=== PATIENT | female | born 1940 | race Caucasian/White ===

== ENCOUNTER 2017-01-21 07:39 | Day surgery (SDC) | payer MEDICARE ==
[2017-01-21] VITALS (11 sets, daily range): BP systolic 136–180; BP diastolic 81–107; PULSE 77–98; RESP 18–20; TEMP 98–98.6; O2SAT 93–97
[~2017-01-21] VITALS: Ht 162.6 cm; Wt 76.7 kg
[2017-01-21] MEDS ORDERED: POVIDONE IODINE 5% (ANTISEPSIS KIT) 4 APPLICATIONS EACH NARE PRN (08:15)
[2017-01-21] MEDS ORDERED: INSULIN HUMAN REGULAR 1,000 UNITS/10 ML VIAL SQ PRN (08:15)
[2017-01-21] MEDS ORDERED: LACTATED RINGER'S 1000 ML IV PRN (08:15)
[2017-01-21] MEDS ORDERED: CHLORHEXIDINE GLUCONATE 2 % 1 PACK (2 CLOTHS) TOPICAL PRN (08:15)
[2017-01-21] MEDS ORDERED: METOPROLOL TARTRATE 25 MG TAB PO PRN (08:15)
[2017-01-21] MEDS ORDERED: LORazepam 1 MG TAB SL SCH (08:15)
[2017-01-21] MEDS ORDERED: SODIUM CHLORID 0.9% 500 ML IV PRN (08:15)
[2017-01-21] MEDS ORDERED: SODIUM CHLORID 0.9% 500 ML INJ 500 ML IV SCH (08:15)
[2017-01-21] MEDS ORDERED: CALTTAB6 (08:18)
[2017-01-21] MEDS ORDERED: LEVO100T5 PO (08:18)
[2017-01-21] MEDS ORDERED: MULTCAP13 (08:18)
[2017-01-21] MEDS ORDERED: ZYRT10CA PO (08:18)
[2017-01-21] MEDS ORDERED: ASPI81CH CHEW (08:18)
[2017-01-21] MEDS ORDERED: CARD120T4 PO (08:18)
[2017-01-21] MEDS ORDERED: ROSU1TAB8 PO (08:18)
[2017-01-21] MEDS ORDERED: FEXO15TA PO (08:18)
[2017-01-21 08:27] LABS: AUTOMATED NEUTROPHIL # 2.1 TH/MM3 (1.8-7.7); BASOPHIL % 1.1 % (0.0-2.0); EOSINOPHIL % 0.5 % (0.0-4.0); HEMATOCRIT 39.7 % (35.0-46.0); HEMO FLAGS DIFF FINAL; LYMPH % 34.2 % (9.0-44.0); LYMPHOCYTE # 1.3 TH/MM3 (1.0-4.8); MEAN CELL VOLUME 95.2 FL (80.0-100.0); MEAN CORPUSCULAR HEMOGLOBIN 32.9 PG (27.0-34.0); MEAN CORPUSCULAR HGB CONC 34.6 % (32.0-36.0); MONO % 9.7 % (0.0-8.0); NEUT % 54.5 % (16.0-70.0); PLATELET COUNT 184 TH/MM3 (150-450); RED BLOOD COUNT 4.17 MIL/MM3 (4.00-5.30); RED CELL DISTRIBUTION WIDTH 12.8 % (11.6-17.2); WHITE BLOOD COUNT 3.9 TH/MM3 (4.0-11.0)
[2017-01-21 08:35] LABS: APTT (PATIENT) 25.4 SEC (24.3-30.1)
[2017-01-21 08:48] LABS: BICARBONATE 30.8 MEQ/L (21.0-32.0); POTASSIUM 3.4 MEQ/L (3.5-5.1)
[2017-01-21] MEDS ORDERED: MIDAZOLAM HCL 2 MG/2 ML VIAL ONE (09:59)
[2017-01-21] MEDS ORDERED: SODIUM CHLOR 0.9% 250 ML INJ 250 ML ONE (09:59)
[2017-01-21] MEDS ORDERED: ISOPROTERENOL HCL 1 MG/5 ML AMP ONE (10:04)
[2017-01-21] MEDS ORDERED: HEPARIN-NS/PF INJ 500 ML ONE (10:35)
[2017-01-21] MEDS ORDERED: METOCLOPRAMIDE HCL 10 MG/2 ML VIAL IV PRN (11:45)
[2017-01-21] MEDS ORDERED: BACITRACIN OINT 0.9 GM PKT TOP ONE (11:45)
[2017-01-21] MEDS ORDERED: LORazepam 2 MG/ML VIAL IV PRN (11:45)
[2017-01-21] MEDS ORDERED: oxyCODONE/ACETAMINOPHEN 5 MG/325 MG TAB PO PRN ×2 (11:45)
[2017-01-21] MEDS ORDERED: SODIUM CHLOR 0.9% 250 ML INJ 250 ML IV PRN (11:45)
[2017-01-21] MEDS ORDERED: ONDANSETRON HCL 4 MG/2 ML VIAL IV PRN (11:45)
[2017-01-21] MEDS ORDERED: ATROPINE SULFATE 1 MG/ML VIAL IV PRN (11:45)
[2017-01-21] MEDS ORDERED: LIDOCAINE HCL 1% 50 ML VIAL INFIL PRN (11:45)
--- NOTE | 2017-01-21 13:58 | EKG ---
Date Performed: 01/21/2017 Time Performed: 08:18:26 PTAGE: 76 years EKG: Sinus rhythm . Poor R wave progression - probable normal variant Borderline ECG NO PREVIOUS TRACING DOCTOR: Enrique Menjivar Interpretating Date/Time 01/21/2017 13:56:05
--- NOTE | 2017-01-21 15:29 | MA ---
cc: KYLER BHAKTA M.D. 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 INDICATION Mrs. Delcid is a 76-year-old female with recurrent episode of tachyarrhythmia, referred for electrophysiology study and ablation. The risks, the nature and the benefit of the procedure are clearly stated to her. The risks include pneumothorax, cardiac perforation, stroke, need for open heart surgery and even . The patient understood and agreed to proceed. PROCEDURE After written informed consent was obtained, the patient was brought to the EP lab where she was prepped and draped in the usual sterile fashion. Conscious sedation was initiated and maintained throughout the procedure by anesthesiologist. Once sedation was verified, the left and right inguinal area was anesthetized with 2% Xylocaine. Using modified Seldinger technique, the left femoral vein was cannulated on three occasions, three guidewires were advanced. Over the wire three 5-Swazi Hemaquet were advanced. Then the right femoral vein was cannulated on two occasions, two guidewire were advanced. Over the wire a 6 and a 8-Swazi Hemaquet was advanced. Then under fluoroscopic guidance through the 5 and 6-Swazi Hemaquet, four 5-Swazi Angelica curved quadripolar electrophysiology catheter were advanced and placed around the His, upper right atrium, coronary sinus and right ventricular apex. Basic interval was measured. They were within normal limits. At this point atrial pacing protocol was performed. Atrial pacing protocol consists of incremental atrial pacing as well as program stimulation with 410 cycle length and up to one excess stimuli delivered. During atrial pacing protocol supraventricular tachyarrhythmia of intracardiac characteristic of AV katherine reentrant tachycardia was induced. It was pace terminated. Then ventricular pacing protocol was performed. There was VA conduction, it was concentric. No tachyarrhythmia was induced. At that point to the 8-Swazi Hemaquet, a Cordis Stanford 4-mm D curve mapping radiofrequency ablation catheter was advanced. Using [employer] endocardial solution mapping system a three-dimensional configuration of the right atrium was obtained. Then the catheter was placed at the tricuspid valve annulus. ____ trifurcated A observed. Radiofrequency energy was delivered during ablation, multiple junctional beat observed. Further burn was delivered in the area. Then atrial pacing protocol was repeated again. No echo beat observed. No tachyarrhythmia was induced. Wenckebach was achieved at around 380 milliseconds. Previous to that tachyarrhythmia was induced at around 310 milliseconds cycle length. Then ventricular pacing protocol was repeated again, no tachyarrhythmia was induced. Then Isuprel infusion was initiated at 4 michelle. No tachyarrhythmia was induced. Post Isuprel no tachyarrhythmia was induced. At that point procedure was complete. All catheters were removed. The patient is going to be transferred to the recovery room. No incident report. The patient tolerated the procedure. Blood loss was minimal. 1. Electrocardiogram. At baseline the patient was in sinus. Postprocedure electrocardiogram was unchanged. 2. Basic interval. Base cycle length was around 760 milliseconds. AH was around 90 and HV was around 52 milliseconds. 3. Atrial pacing protocol. Wenckebach of the node at baseline was not reachable. Post ablation Wenckebach was around 380 milliseconds. 4. Ventricular pacing protocol. There was VA conduction and it was concentric. 5. Tachyarrhythmia. Supraventricular tachyarrhythmia of intracardiac characteristic of AV katherine reentrant tachycardia was induced. Slow pathway was mapped and ablated. Ablation was successful. 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 COMMENT AND RECOMMENDATION The patient is going to be transferred to the telemetry unit. Will be observed and when stable can be discharged home. MD JONATHAN Moreno/SALMA /11:41 AM /2:55 PM
[2017-01-21] MEDS ORDERED: PROPOFOL 200 MG/20 ML AMP IV ONE (16:30)
--- NOTE | 2017-01-21 16:50 | EKG ---
Date Performed: 01/21/2017 Time Performed: 12:34:56 PTAGE: 76 years EKG: Sinus rhythm . Possible inferior infarct - age undetermined QRS changes V3/V4 may be due to LVH but cannot rule ou t anterior infarct Abnormal ECG NO SIGNIFICANT CHANGE FROM PRIOR ELECTROCARDIOGRAM. PREVIOUS TRACING : 01/21/2017 08.18 DOCTOR: Enrique Menjivar Interpretating Date/Time 01/21/2017 16:48:01
[2017-01-22] VITALS (12 sets, daily range): BP systolic 148–156; BP diastolic 92–94; PULSE 76–92; RESP 16; TEMP 98.2–98.8; O2SAT 93–94
[2017-01-22] MEDS ORDERED: LEVOTHYROXINE SODIUM 100 MCG TAB PO SCH (06:00)
--- NOTE | 2017-01-22 07:24 | PD.CARD.PN ---
Subjective Subjective Remarks No complaints Objective Medications Current Medications Medications (Trade) Dose Ordered Sig/Timmy Route Start Time Stop Time Status Last Admin Sodium Chloride 500 ml @ 30 mls/hr [id number] IV 01/21/17 08:15 Lactated Ringer's 1,000 ml @ 30 mls/hr Q24H PRN IV 01/21/17 08:15 01/24/17 08:14 (NS 500 ml Inj) 500 ml @ 30 mls/hr [id number] PRN IV 01/21/17 08:15 01/24/17 08:14 (Percocet 5-325 Mg) 1 tab Q4H PRN PO 01/21/17 11:45 (Percocet 5-325 Mg) 2 tab Q4H PRN PO 01/21/17 11:45 (Ativan Inj) 0.5 mg UNSCH PRN IV 01/21/17 11:45 01/22/17 11:44 Atropine Sulfate 0.5 mg 0.5 mg UNSCH PRN IV 01/21/17 11:45 (NS 250 ml Inj) 250 ml @ 500 mls/hr ONCE PRN IV 01/21/17 11:45 01/22/17 11:44 (Reglan Inj) 10 mg Q4H PRN IV 01/21/17 11:45 (Zofran Inj) 4 mg Q4H PRN IV 01/21/17 11:45 (Xylocaine 1% Inj (50 ml)) 10 ml UNSCH PRN INFIL 01/21/17 11:45 01/22/17 11:44 (Aspirin Chew) 81 mg DAILY CHEW 01/22/17 09:00 (ZyrTEC) 10 mg DAILY PO 01/22/17 09:00 (Synthroid) 100 mcg DAILY@06 PO 01/22/17 06:00 01/22/17 05:57 (Lipitor) 40 mg DAILY PO 01/22/17 09:00 Vital Signs / I&O Vital Signs Date Time Temp Pulse Resp B/P Pulse Ox O2 Delivery O2 Flow Rate FiO2 01/22/17 06:00 80 01/22/17 05:00 76 01/22/17 04:24 98.2 78 156/94 93 01/22/17 04:00 82 01/22/17 03:00 81 01/22/17 02:00 80 01/22/17 01:00 78 01/22/17 00:00 78 01/21/17 23:00 98.6 80 157/95 93 01/21/17 23:00 80 01/21/17 22:00 78 01/21/17 21:00 82 01/21/17 20:00 78 01/21/17 19:00 81 01/21/17 19:00 98.2 80 145/97 95 01/21/17 18:00 98 01/21/17 17:00 88 01/21/17 16:04 79 01/21/17 15:00 78 01/21/17 15:00 98.0 83 18 136/81 96 01/21/17 14:00 83 01/21/17 08:00 98.0 77 20 180/107 97 I/O 01/21/17 01/21/17 01/21/17 01/22/17 01/22/17 01/22/17 07:00 15:00 23:00 07:00 15:00 23:00 Intake Total 480 ml 480 ml Output Total 350 ml 650 ml Balance 130 ml -170 ml Intake Oral 480 ml 480 ml Output Urine Total 350 ml 650 ml # Voids 1 Physical Exam GENERAL: Well-nourished, well-developed patient. SKIN: Warm and dry. Groin sites soft without bruising or swelling. HEAD: Normocephalic. EYES: No scleral icterus. No injection or drainage. NECK: Supple, trachea midline. No JVD or lymphadenopathy. CARDIOVASCULAR: Regular rate and rhythm without murmurs, gallops, or rubs. RESPIRATORY: Breath sounds equal bilaterally. No accessory muscle use. GASTROINTESTINAL: Abdomen soft, non-tender, nondistended. EXTREMITIES: No cyanosis, or edema. NEUROLOGICAL: Awake, alert, and oriented x 3. Non-focal. Laboratory Laboratory Tests Test 01/21/17 08:00 White Blood Count 3.9 TH/MM3 Red Blood Count 4.17 MIL/MM3 Hemoglobin 13.7 GM/DL Hematocrit 39.7 % Mean Corpuscular Volume 95.2 FL Mean Corpuscular Hemoglobin 32.9 PG Mean Corpuscular Hemoglobin 34.6 % Concent Red Cell Distribution Width 12.8 % Platelet Count 184 TH/MM3 Mean Platelet Volume 8.5 FL Neutrophils (%) (Auto) 54.5 % Lymphocytes (%) (Auto) 34.2 % Monocytes (%) (Auto) 9.7 % Eosinophils (%) (Auto) 0.5 % Basophils (%) (Auto) 1.1 % Neutrophils # (Auto) 2.1 TH/MM3 Lymphocytes # (Auto) 1.3 TH/MM3 Monocytes # (Auto) 0.4 TH/MM3 Eosinophils # (Auto) 0.0 TH/MM3 Basophils # (Auto) 0.0 TH/MM3 CBC Comment DIFF FINAL Differential Comment Prothrombin Time 11.0 SEC Prothromb Time International 1.0 RATIO Ratio Activated Partial 25.4 SEC Thromboplast Time Sodium Level 142 MEQ/L Potassium Level 3.4 MEQ/L Chloride Level 105 MEQ/L Carbon Dioxide Level 30.8 MEQ/L Anion Gap 6 MEQ/L Blood Urea Nitrogen 11 MG/DL Creatinine 0.97 MG/DL Estimat Glomerular Filtration 56 ML/MIN Rate Random Glucose 107 MG/DL Calcium Level 8.4 MG/DL Blood Type O POSITIVE Antibody Screen NEGATIVE Assessment and Plan Problem List: (1) S/P ablation of accessory bypass tract Assessment and Plan: No palpitations or arrhythmias overnight. (2) AVNRT (AV katherine re-entry tachycardia) Assessment and Plan: Stable s/p ablation. DC home, f/u with Dr. Mathur in 3 weeks, per my d/w him. Melina Jean Jan 22, 2017 07:23
[2017-01-22] MEDS ORDERED: ASPIRIN 81 MG CHEW TAB CHEW SCH (09:00)
[2017-01-22] MEDS ORDERED: NON-FORMULARY DRUG (Fexofenadine (Allegra Allergy) 180 MG) PO SCH (09:00)
[2017-01-22] MEDS ORDERED: ATORVASTATIN 40 MG TAB PO SCH (09:00)
[2017-01-22] MEDS: CETIRIZINE HCL 10 MG TAB PO SCH ×2 (10:03→10:04)
--- NOTE | 2017-01-22 10:08 | EKG ---
Date Performed: 01/22/2017 Time Performed: 06:51:12 PTAGE: 76 years EKG: Sinus rhythm Possible inferior infarct - age undetermined QRS changes V3/V4 may be due to LVH but cannot rule out anterior infarct Abnormal ECG NO SIGNIFICANT CHANGE FROM PRIOR ELECTROCARDIOGRAM. PREVIOUS TRACING : 01/21/2017 12.34 DOCTOR: Enrique Menjivar Interpretating Date/Time 01/22/2017 10:06:16
== END 2017-01-22 11:35 | disposition home or self-care (01) ==
LOC: HDOC 07:39 → HDIC 07:40 → HCIS 13:56 → HDOC 01-22 11:35
PROVIDERS: ATTEND Internal Medicine Interventional Cardiology
DX: I47.1 Supraventricular tachycardia (principal); I10 Essential (primary) hypertension; E03.9 Hypothyroidism, unspecified
CPT/HCPCS: 00537; 80048; 85025; 85610; 85730; 86850; 86900; 86901; 93005; 93613; 93623; 93653; C1730; C1732; C2630; J1644; J2250; J3010; J7050